=== PATIENT | female | born 2000 | race Caucasian/White ===

== ENCOUNTER 2024-06-22 04:27 | Inpatient (IN) | payer MEDICAID, OTHER ==
[~2024-06-22 04:27] MED LIST: Bupivacaine 0.25% 10 ML SDV ONE
[2024-06-22] MEDS ORDERED: Lidocaine 1% 50 ML MDV INJECT PRN (07:55)
[2024-06-22] MEDS ORDERED: Calcium Carbonate 500 MG Tab.Chew PO PRN (07:55)
[2024-06-22] MEDS ORDERED: Ondansetron 4 MG/2 ML SDV IVPUSH PRN (07:55)
[2024-06-22] MEDS ORDERED: Sodium Chloride 0.9% 10 ML Syringe FLUSH PRN (07:55)
[2024-06-22] MEDS ORDERED: Nalbuphine 10 MG/1 ML Vial IVPUSH PRN (07:55)
[2024-06-22] MEDS ORDERED: Oxytocin/0.9 % Sodium Chloride 30 UNIT/500 ML BAG IV SCH (08:00)
[2024-06-22 08:22] LABS: BASOPHILS PERCENT AUTO 0.2 % (0.0-1.0); HEMATOCRIT 40.9 % (37.0-47.0); HEMOGLOBIN 14.7 gm/dl (12.0-16.0); IMMATURE GRAN ABSOLUTE AUTO 0.04 K/mm3 (0.00-0.05); IMMATURE GRAN PERCENT AUTO 0.3 % (0.0-0.4); LYMPHOCYTES ABSOLUTE AUTO 1.4 K/mm3 (1.0-4.8); LYMPHOCYTES PERCENT AUTO 10.7 % (24.0-44.0); MEAN CORPUSCULAR HEMOGLOBIN 30.4 pg (28.0-32.0); MEAN CORPUSCULAR HGB CONC 35.9 g/dl (32.0-36.0); MEAN CORPUSCULAR VOLUME 84.5 fl (83.0-99.0); MEAN PLATELET VOLUME 10.4 fl (9.4-12.3); MONOCYTES ABSOLUTE AUTO 0.6 K/mm3 (0.0-0.8); MONOCYTES PERCENT AUTO 4.4 % (0.0-8.0); NEUTROPHILS ABSOLUTE AUTO 10.8 K/mm3 (1.8-7.7); NEUTROPHILS PERCENT AUTO 84.4 % (41.0-71.0); PLATELET COUNT,PLT 201 K/mm3 (150-400); RED BLOOD CELL COUNT 4.84 M/mm3 (4.10-5.30); WHITE BLOOD CELL COUNT,WBC 12.79 K/mm3 (3.9-11.3)
[2024-06-22] MEDS: Sodium Chloride 0.9% 10 ML Syringe FLUSH SCH (14:35)
[2024-06-22] MEDS: Lactated Ringers 1,000 ML IV SCH (15:48)
[2024-06-22] MEDS ORDERED: diphenhydrAMINE 50 MG/ML SDV IVPUSH PRN (19:25)
[2024-06-22] MEDS ORDERED: ePHEDrine 50 MG/ML SDV IVPUSH PRN (19:25)
[2024-06-22] MEDS ORDERED: fentaNYL 100 MCG/2 ML SDV EPIDUR PRN (19:25)
[2024-06-22] MEDS: Bupivacaine/fentaNYL/NS 100 ML Bag EPIDUR PRN (19:57)
[2024-06-23] MEDS: diphenhydrAMINE 50 MG/ML SDV IVPUSH ONE (07:19)
[2024-06-23] MEDS: Oxytocin/0.9 % Sodium Chloride 30 UNIT/500 ML BAG IV SCH (07:58)
[2024-06-23] MEDS: Methylergonovine 0.2 MG/1 ML Amp IM PRN (16:27)
[2024-06-23] MEDS ORDERED: Acetaminophen 325 MG Tab PO PRN (16:57)
[2024-06-23] MEDS ORDERED: Benzocaine/Menthol 20%-0.5% Spray 78 GM Cannister TOP PRN (16:57)
[2024-06-23] MEDS ORDERED: Witch Hazel Medicated Pads 40/Jar TOP PRN (16:57)
[2024-06-23 17:06] LABS: HEMOGLOBIN 13.6 gm/dl (12.0-16.0); MEAN CORPUSCULAR HEMOGLOBIN 30.5 pg (28.0-32.0); MEAN CORPUSCULAR HGB CONC 35.8 g/dl (32.0-36.0); MEAN CORPUSCULAR VOLUME 85.2 fl (83.0-99.0); MEAN PLATELET VOLUME 10.1 fl (9.4-12.3); PLATELET COUNT,PLT 174 K/mm3 (150-400); RED BLOOD CELL COUNT 4.46 M/mm3 (4.10-5.30); WHITE BLOOD CELL COUNT,WBC 19.39 K/mm3 (3.9-11.3)
[2024-06-23 17:43] LABS: INR 0.97; PROTHROMBIN TIME 10.3 SECONDS (9.7-12.0)
[2024-06-23 17:45] LABS: PTT,PARTIAL THROMBOPLSTIN TIME 25.6 SECONDS (21.7-31.4)
[2024-06-23] MEDS: Ibuprofen 600 MG Tab PO SCH ×2 (18:32→23:59)
[2024-06-24 05:45] LABS: HEMATOCRIT 34.8 % (37.0-47.0); HEMOGLOBIN 12.5 gm/dl (12.0-16.0); MEAN CORPUSCULAR HEMOGLOBIN 30.6 pg (28.0-32.0); MEAN CORPUSCULAR HGB CONC 35.9 g/dl (32.0-36.0); MEAN CORPUSCULAR VOLUME 85.1 fl (83.0-99.0); MEAN PLATELET VOLUME 10.1 fl (9.4-12.3); PLATELET COUNT,PLT 171 K/mm3 (150-400); RED BLOOD CELL COUNT 4.09 M/mm3 (4.10-5.30); WHITE BLOOD CELL COUNT,WBC 14.95 K/mm3 (3.9-11.3)
[2024-06-24] MEDS: Sennosides 8.6 MG Tab PO PRN (17:25)
[2024-06-24] MEDS: Ibuprofen 600 MG Tab PO SCH (22:30)
== END 2024-06-25 10:25 | disposition home or self-care (01) | DRG 806 ==
LOC: JD.OBCHECK 04:27 → JD.OB 04:32 → JD.OBCHECK 07:55 → OBSVTOIN 16:56 → JD.OB 06-23 16:57
PROVIDERS: ADMIT Obstetrics & Gynecology; ATTEND Obstetrics & Gynecology
PROC: 10E0XZZ Delivery of Products of Conception, External Approach (ICD-10-PCS; principal; 2024-06-23)
PROC: 10907ZC Drainage of Amniotic Fluid, Therapeutic from Products of Conception, Via Natural or Artificial Opening (ICD-10-PCS; 2024-06-23)
PROC: 3E033VJ Introduction of Other Hormone into Peripheral Vein, Percutaneous Approach (ICD-10-PCS; 2024-06-23)
PROC: 0HQ9XZZ Repair Perineum Skin, External Approach (ICD-10-PCS; 2024-06-23)
PROC: 3E0R3BZ Introduction of Anesthetic Agent into Spinal Canal, Percutaneous Approach (ICD-10-PCS; 2024-06-23)
PROC: 00HU33Z Insertion of Infusion Device into Spinal Canal, Percutaneous Approach (ICD-10-PCS; 2024-06-23)
PROC: 10H07YZ Insertion of Other Device into Products of Conception, Via Natural or Artificial Opening (ICD-10-PCS; 2024-06-24)
PROC: 3E0334Z Introduction of Serum, Toxoid and Vaccine into Peripheral Vein, Percutaneous Approach (ICD-10-PCS; 2024-06-24)
DX: O48.0 Post-term pregnancy (principal); O72.0 Third-stage hemorrhage; Z37.0 Single live birth; O70.0 First degree perineal laceration during delivery; O76 Abnormality in fetal heart rate and rhythm complicating labor and delivery; O77.0 Labor and delivery complicated by meconium in amniotic fluid; O26.893 Other specified pregnancy related conditions, third trimester; Z67.11 Type A blood, Rh negative; Z3A.40 40 weeks gestation of pregnancy; Z98.890 Other specified postprocedural states
CPT/HCPCS: 36415; 51701; 51702; 59025; 59409; 85025; 85027; 85384; 85461; 85610; 85730; 86592; 86850; 86870; 86900; 86901; A9270-GY; C1758; J0665; J1200; J2210; J2791; J3490; J7120; J7999